=== PATIENT | female | born 1990 | race African-American/Black ===

== ENCOUNTER 2023-10-15 09:10 | Emergency (ER) | payer OTHER ==
[2023-10-15 09:26] VITALS: BMI 28.1
[2023-10-15] MEDS ORDERED: ACETAMINOPHEN INJECTION 100 ML IVPB ONE (09:32)
[2023-10-15] MEDS ORDERED: ONDANSETRON 4 MG/2 ML VIAL ONE (09:32)
[2023-10-15] MEDS: ONDANSETRON 4 MG/2 ML VIAL IVPUSH ONE (09:40)
[2023-10-15] MEDS: SODIUM CHLORIDE 0.9% 500 ML INFUS.BAG IV ONE (09:49)
[2023-10-15] MEDS: ACETAMINOPHEN 1000 MG/100 ML BAG IVPB ONE (09:49)
[2023-10-15 09:52] LABS: BASO % 0.5 % (0-2.0); EOS % 0.3 % (0-4.5); HEMATOCRIT 40.4 % (32.4-45.2); HEMOGLOBIN 13.6 GM/dL (10.7-15.3); LYMPH % 15.7 % (8-40); MCH 27.7 pg (25.7-33.7); MCHC 33.5 g/dl (32.0-36.0); MEAN CELL VOLUME 82.6 fl (80-96); MEAN PLT VOLUME 8.1 fl (7.5-11.1); MONO % 6.6 % (3.8-10.2); NEUT % 76.9 % (42.8-82.8); PLATELET COUNT 258 10^3/uL (134-434); RBC 4.89 M/mm3 (3.60-5.2); RDW 16.1 % (11.6-15.6); WHITE BLOOD COUNT 6.5 K/mm3 (4.0-10.0)
[2023-10-15 10:11] LABS: POTASSIUM 3.4 mmol/L (3.5-5.1)
[2023-10-15 10:14] LABS: ALBUMIN 3.9 g/dl (3.4-5.0)
[2023-10-15 10:15] LABS: BLOOD UREA NITROGEN 7.8 mg/dL (7-18); CALCIUM 10.2 mg/dL (8.5-10.1)
[2023-10-15 10:18] LABS: CREATININE 0.8 mg/dL (0.55-1.3)
[2023-10-15 10:19] LABS: BILIRUBIN,TOTAL 0.3 mg/dL (0.2-1); TOT PROT 8.4 g/dl (6.4-8.2)
[2023-10-15] MEDS ORDERED: FAMOTIDINE 20 MG/50 ML IVPB 20 MG/50 ML MG IVPB ONE (10:49)
[2023-10-15] MEDS ORDERED: diazePAM CARPU-JECT 10 MG/2 ML DISP.SYRIN ONE (10:49)
[2023-10-15] MEDS: FAMOTIDINE 20 MG/50 ML IVPB 20 MG/50 ML MG IVPB ONE (10:55)
[2023-10-15] MEDS: diazePAM CARPU-JECT 10 MG/2 ML DISP.SYRIN IVPUSH ONE (10:55)
[2023-10-15] MEDS ORDERED: METOCLOPRAMIDE HCL INJECTION 10 MG/2 ML VIAL ONE (13:00)
[2023-10-15] MEDS: METOCLOPRAMIDE HCL INJECTION 10 MG/2 ML VIAL IVPUSH ONE (13:07)
[2023-10-15 15:23] VITALS: BP 123/87; PULSE 65; RESP 15; TEMP 98.8
== END 2023-10-15 14:57 | disposition home or self-care (01) ==
LOC: JER 09:10
PROC: 3E033GC Introduction of Other Therapeutic Substance into Peripheral Vein, Percutaneous Approach (ICD-10-PCS; principal; 2023-10-15)
PROC: 3E033GC Introduction of Other Therapeutic Substance into Peripheral Vein, Percutaneous Approach (ICD-10-PCS; 2023-10-15)
PROC: 3E033GC Introduction of Other Therapeutic Substance into Peripheral Vein, Percutaneous Approach (ICD-10-PCS; 2023-10-15)
PROC: 3E033GC Introduction of Other Therapeutic Substance into Peripheral Vein, Percutaneous Approach (ICD-10-PCS; 2023-10-15)
PROC: 3E033NZ Introduction of Analgesics, Hypnotics, Sedatives into Peripheral Vein, Percutaneous Approach (ICD-10-PCS; 2023-10-15)
DX: R10.84 Generalized abdominal pain (principal); K29.50 Unspecified chronic gastritis without bleeding; F41.9 Anxiety disorder, unspecified; R11.2 Nausea with vomiting, unspecified; Z20.822 Contact with and (suspected) exposure to COVID-19
CPT/HCPCS: 0241U-QW; 80053; 83605; 83690; 85025; 86850; 86900; 86901; 93005; 93010; 99284-25; J0131

== ENCOUNTER 2024-05-08 06:44 | Emergency (ER) | payer OTHER ==
[2024-05-08 07:03] VITALS: BP 133/96; PULSE 97; RESP 20; TEMP 97.9; BMI 35.6
[2024-05-08] MEDS ORDERED: ACETAMINOPHEN 325 MG TABLET (FP) ONE (09:06)
[2024-05-08] MEDS: ACETAMINOPHEN 325 MG TABLET (FP) PO ONE (09:43)
== END 2024-05-08 17:11 | disposition home or self-care (01) ==
LOC: JER 06:44
DX: R51.9 Headache, unspecified (principal); R07.9 Chest pain, unspecified
CPT/HCPCS: 93005; 93010; 99283-25